=== PATIENT | male | born 1970 | race Caucasian/White ===

== ENCOUNTER 2025-09-18 14:38 | Emergency (ER) | payer OTHER ==
[~2025-09-18] VITALS: Ht 172.7 cm; Wt 70.3 kg
== END 2025-09-18 16:12 | disposition home or self-care (01) ==
LOC: ED 14:38
DX: S62.525A Nondisplaced fracture of distal phalanx of left thumb, initial encounter for closed fracture (principal); F41.9 Anxiety disorder, unspecified; G47.00 Insomnia, unspecified; V89.2XXA Person injured in unspecified motor-vehicle accident, traffic, initial encounter; Y93.89 Activity, other specified; Y92.89 Other specified places as the place of occurrence of the external cause; Y99.8 Other external cause status